=== PATIENT | female | born 1945 | race Caucasian/White ===

== ENCOUNTER → 2017-12-02 | Outpatient (CLI) | payer MEDICARE, OTHER ==
[2016-06-10 11:54] VITALS: BMI 30.5
[~2017-12-02] MED LIST: ALPR-1 PO; AZIT-1 PO; CITA-139 PO; CITA-141 PO; CPAP; DIAZ-308 PO; DOCU-416 PO; ESZ2 PO; FLU60VIA21 IM ONLY; FLUO-177 PO; FLUO20TA2 PO; FLUO40CA76 PO; FLUR30CA PO; GABA-503 PO; LEVO25TA61 PO; MIRT-22 PO; NAPR-1043 PO; OXYGENHOME INH; PARO-46 PO; PARO30TA71 PO; PER PO; PNEU0.5D3 IM; SERT-1 PO; SERT-181 PO; SIMV-49 PO; TRAM-420 PO; VALS160T2 PO; VALS1TAB10 PO; VALS1TAB6 PO; VALS40TA7 PO
== END ==
LOC: RESP 09:54
PROVIDERS: ATTEND Family Medicine
DX: R09.02 Hypoxemia (principal); J98.4 Other disorders of lung
CPT/HCPCS: 94060; 94726; 94729

== ENCOUNTER → 2018-02-05 | Outpatient (CLI) | payer MEDICARE, OTHER ==
[2016-06-10 11:54] VITALS: BMI 30.5
[~2018-02-05] MED LIST changes: -VALS160T2 PO; +VALS160T7 PO
--- NOTE | 2018-02-05 15:28 | RADIOLOGY IMAGING REPORT ---
FACILITY: [facility] PATIENT NAME: DENY MEDEL : [id number] MR: [id number] V: [id number] EXAM DATE: [id number] ORDERING PHYSICIAN: IRIS BHAKTA TECHNOLOGIST: Carmen Tillman PROCEDURE:BILATERAL DIGITAL SCREENING MAMMOGRAM WITH CAD ASSISTED INTERPRETATION & 3D TOMOSYNTHESIS COMPARISON:Prior mammograms 01/14/17, 01/08/16, 01/16/15, 01/04/15, 12/14/13, 11/01/12 INDICATIONS:SCREENING FINDINGS: Mildly heterogeneous fibroglandular tissue is seen throughout the breasts. The parenchymal pattern has remained stable allowing for difference in mammographic technique & patient positioning. There is no evidence of malignant appearing mass, malignant appearing calcifications or other secondary sign of malignancy in either breast. DIAGNOSTIC CATEGORY 2--BENIGN FINDING. RECOMMENDATIONS: ROUTINE MAMMOGRAM AND CLINICAL EVALUATION. IMPRESSION: BIRADS 2: Benign finding No significant abnormality is seen. Dictated by: Nellie Hardin M.D. on 02/05/2018 at 10:09 Transcribed by: DAVID on 02/05/2018 at 10:51 Approved by: Nellie Hardin M.D. on 02/05/2018 at 15:27 [facility]
== END ==
LOC: MAMO 00:35
PROVIDERS: ATTEND Internal Medicine
DX: Z12.31 Encounter for screening mammogram for malignant neoplasm of breast (principal)
CPT/HCPCS: 77063; 77067

== ENCOUNTER → 2018-02-12 | Outpatient (CLI) | payer MEDICARE, OTHER ==
[2016-06-10 11:54] VITALS: BMI 30.5
[2018-02-12 10:02] LABS: LDL CHOLESTEROL 107 mg/dl
== END ==
LOC: LAB 08:02
PROVIDERS: ATTEND Internal Medicine
DX: R73.01 Impaired fasting glucose (principal); I10 Essential (primary) hypertension; E78.00 Pure hypercholesterolemia, unspecified; E03.9 Hypothyroidism, unspecified
CPT/HCPCS: 36415; 82040; 82247; 82310; 82374; 82435; 82465; 82565; 82947; 83036; 83718; 84075; 84132; 84155; 84295; 84443; 84450; 84460; 84478; 84520

== ENCOUNTER → 2018-02-19 | Outpatient (CLI) | payer MEDICARE, OTHER ==
[2016-06-10 11:54] VITALS: BMI 30.5
--- NOTE | 2018-02-19 16:10 | RADIOLOGY IMAGING REPORT ---
FACILITY: [facility] PATIENT NAME: Noemy Caldwell : 1945 MR: [id number] V: [id number] EXAM DATE: ORDERING PHYSICIAN: GAIL CUADRA TECHNOLOGIST: Location: [facility] [place] Patient: Noemy Caldwell : 1945 Visit/Account:[id number] Date of Sevice: 02/19/2018 Exam type: CHEST PA AND LAT History: Shortness of breath Comparison: May 16, 2016. Findings: The lungs are free of acute effusions, infiltrates or edema. There is no evidence of a pneumothorax or pneumomediastinum. Cardiac silhouette is normal in size. IMPRESSION: 1. No acute cardiopulmonary process is seen Report Dictated By: Nellie Hardin MD at 02/19/2018 4:06 PM Report E-Signed By: Nellie Hardin MD at 02/19/2018 4:06 PM WSN:[email or web address]
--- NOTE | 2018-02-19 17:31 | RADIOLOGY IMAGING REPORT ---
FACILITY: [facility] PATIENT NAME: Noemy Caldwell : 1945 MR: [id number] V: [id number] EXAM DATE: ORDERING PHYSICIAN: GAIL CUADRA TECHNOLOGIST: Location: [facility] [place] Patient: Noemy Caldwell : 1945 Visit/Account:[id number] Date of Sevice: 02/19/2018 Nuclear Medicine Lung Ventilation and Perfusion Scan HISTORY: Shortness of breath. Look for a [id number]-[id number]-sxhf shunt. TECHNIQUE: 31.3 mCi TcDTPA was placed in an aerosolizer, and the patient inhaled approximately one tenth of this dose. Gamma camera images of the chest were obtained in various orientations. 2.0 mCi Tc MAA was injected intravenously. Gamma camera images were obtained of the chest in the same orientation as the ventilation images. COMPARISON: Chest x-ray 02/19/2018 FINDINGS: Lung perfusion radiotracer distribution: Normal Lung ventilation radiotracer distribution: Normal Correlation to chest x-ray: No infiltrate, effusion or evidence of CHF. Anterior and posterior images of the skull and abdomen demonstrates no radionuclide activity in the b rain or kidneys. IMPRESSION: 1. Normal lung ventilation/perfusion scan. 2. No evidence of a pjsmx-ee-cjwk shunt. Report Dictated By: Shanon Pedroza MD at 02/19/2018 5:22 PM Report E-Signed By: Shanon Pedroza MD at 02/19/2018 5:28 PM WSN:[email or web address]
== END ==
LOC: NUC 04:27
PROVIDERS: ATTEND Physician Assistant Surgical
DX: R06.02 Shortness of breath (principal)
CPT/HCPCS: 71046; 78580; A9540

== ENCOUNTER → 2018-06-18 | Outpatient (CLI) | payer MEDICARE, OTHER ==
[2016-06-10 11:54] VITALS: BMI 30.5
[~2018-06-18] MED LIST changes: -CITA-139 PO; +CITA-145 PO; +MELA1TAB24 PO; -VALS160T7 PO; +VALS160T8 PO
[2018-06-18 08:46] LABS: LDL CHOLESTEROL 100 mg/dl
== END ==
LOC: LAB 08:10
PROVIDERS: ATTEND Internal Medicine
DX: I10 Essential (primary) hypertension (principal); R73.01 Impaired fasting glucose; E03.9 Hypothyroidism, unspecified
CPT/HCPCS: 36415; 82040; 82247; 82310; 82374; 82435; 82465; 82565; 82947; 83036; 83718; 84075; 84132; 84155; 84295; 84443; 84450; 84460; 84478; 84520

== ENCOUNTER → 2018-10-22 | Outpatient (CLI) | payer MEDICARE, OTHER ==
[2016-06-10 11:54] VITALS: BMI 30.5
[~2018-10-22] MED LIST changes: +ESZ3PT PO; +FLU180SY11 IM; +LOSA100T69 PO
[2018-10-22 09:18] LABS: LDL CHOLESTEROL 114 mg/dl
== END ==
LOC: LAB 08:22
PROVIDERS: ATTEND Internal Medicine
DX: R73.01 Impaired fasting glucose (principal); E03.9 Hypothyroidism, unspecified; E78.00 Pure hypercholesterolemia, unspecified
CPT/HCPCS: 36415; 82040; 82247; 82310; 82374; 82435; 82465; 82565; 82947; 83036; 83718; 84075; 84132; 84155; 84295; 84443; 84450; 84460; 84478; 84520

== ENCOUNTER → 2019-03-09 | Outpatient (CLI) | payer MEDICARE, OTHER ==
[2016-06-10 11:54] VITALS: BMI 30.5
[~2019-03-09] MED LIST changes: +CYAN500T38 PO; +DOXY25TA PO; -GABA-503 PO; +GABA-533 PO; -LOSA100T69 PO; +LOSA100T75 PO; +ROSU10TA5 PO
== END ==
LOC: LAB 11:24
PROVIDERS: ATTEND Emergency Medicine
DX: R73.03 Prediabetes (principal); I10 Essential (primary) hypertension
CPT/HCPCS: 36415; 83036

== ENCOUNTER → 2019-04-19 | Outpatient (CLI) | payer MEDICARE, OTHER ==
[2016-06-10 11:54] VITALS: BMI 30.5
[~2019-04-19] MED LIST changes: +AMLO-125 PO; +TRAZ50TA34 PO
== END ==
LOC: LAB 08:05
PROVIDERS: ATTEND Emergency Medicine
DX: Z02.9 Encounter for administrative examinations, unspecified (principal)

== ENCOUNTER → 2019-04-27 | Outpatient (CLI) | payer MEDICARE, OTHER ==
[2016-06-10 11:54] VITALS: BMI 30.5
[~2019-04-27] MED LIST changes: -CYAN500T38 PO; +CYAN500T39 PO; +HYDR-4225 PO; -TRAZ50TA34 PO; +TRAZ50TA52 PO
--- NOTE | 2019-04-27 10:32 | RADIOLOGY IMAGING REPORT ---
FACILITY: [facility] PATIENT NAME: Noemy Caldwell : 1945 MR: [id number] V: [id number] EXAM DATE: ORDERING PHYSICIAN: NICOLA SIMMS TECHNOLOGIST: Location: [facility] Patient: Noemy Caldwell : 1945 Visit/Account:[id number] Date of Sevice: 04/27/2019 HIP LEFT Indication: Burning sensation of the left hip Comparison: None available Findings: There is no acute fracture or dislocation of the left hip. Coflex device noted within the lower lumbar spine. IMPRESSION: 1. No acute osseous abnormality left hip as above Report Dictated By: Pelon Sanford MD at 04/27/2019 10:26 AM Report E-Signed By: Pelon Sanford MD at 04/27/2019 10:27 AM WSN:[email or web address]
== END ==
LOC: RAD 09:12
PROVIDERS: ATTEND Emergency Medicine
DX: M25.552 Pain in left hip (principal)

== ENCOUNTER → 2019-05-12 | Outpatient (CLI) | payer MEDICARE, OTHER ==
[2016-06-10 11:54] VITALS: BMI 30.5
[~2019-05-12] MED LIST changes: +LOSA25TA57 PO; +ROSU10TA PO
== END ==
LOC: LAB 08:05
PROVIDERS: ATTEND Emergency Medicine
DX: E78.5 Hyperlipidemia, unspecified (principal)
CPT/HCPCS: 36415; 82465; 83718; 84478

== ENCOUNTER → 2019-06-24 | Outpatient (CLI) | payer MEDICARE, OTHER ==
[2016-06-10 11:54] VITALS: BMI 30.5
[~2019-06-24] MED LIST changes: +LOSA50TA80 PO
[2019-06-24 09:00] LABS: PLATELET COUNT, AUTOMATED 182 K/uL (150-450)
[2019-06-24 10:59] LABS: LDL CHOLESTEROL 95 mg/dl
== END ==
LOC: LAB 08:20
PROVIDERS: ATTEND Emergency Medicine
DX: E78.5 Hyperlipidemia, unspecified (principal); I10 Essential (primary) hypertension; R73.03 Prediabetes; E03.9 Hypothyroidism, unspecified
CPT/HCPCS: 36415; 82040; 82247; 82310; 82374; 82435; 82465; 82565; 82607; 82947; 83036; 83718; 84075; 84132; 84155; 84295; 84443; 84450; 84460; 84478; 84520; 85025